=== PATIENT | female | born 1950 | race Caucasian/White ===

== ENCOUNTER → 2020-02-28 | Day surgery (SDC) | payer MEDICARE, SELFPAY ==
[2020-02-23 12:34] LABS: BASOPHILS % 0.6 % (0.0-1.0); EOSINOPHILS # (AUTO) 0.2 (0.0-0.4); EOSINOPHILS % 2.5 % (0.0-6.0); HEMATOCRIT 36.9 % (34.2-44.1); HEMOGLOBIN 11.6 g/dL (12.0-16.0); LYMPHOCYTES # (AUTO) 1.5 (1.0-3.2); LYMPHOCYTES % 21.2 % (18.0-39.1); MEAN CORPUSCULAR HEMOGLOBIN 29.6 pg (28-32); MEAN CORPUSCULAR HGB CONC 31.4 g/dL (31-35); MEAN CORPUSCULAR VOLUME 94.1 fL (81-99); MONOCYTES # (AUTO) 0.5 (0.2-0.8); MONOCYTES % 6.8 % (4.4-11.3); NEUTROPHILS # (AUTO) 4.8 (2.1-6.9); NEUTROPHILS % 68.6 % (38.7-80.0); PLATELET COUNT 240 x10e3/uL (140-360); RED BLOOD COUNT 3.92 x10e6/uL (3.6-5.1); RED CELL DISTRIBUTION WIDTH 12.9 % (11.7-14.4)
--- NOTE | 2020-02-23 13:32 | Diagnostic Imaging Report ---
EXAMINATION: CHEST 2 VIEWS INDICATION: Preop for shoulder surgery ^[id number] ^1250 ^PRE OP COMPARISON: None FINDINGS: TUBES and LINES: None. LUNGS: Lungs are well inflated. Likely small calcified granuloma in the left upper lung. There is no evidence of pneumonia or pulmonary edema. PLEURA: No pleural effusion or pneumothorax. HEART AND MEDIASTINUM: The cardiomediastinal silhouette is unremarkable. BONES AND SOFT TISSUES: No acute osseous lesion. Soft tissues are unremarkable. UPPER ABDOMEN: No free air under the diaphragm. IMPRESSION: No acute thoracic abnormality. Signed by: Dr. Jose D Sosa M.D. on 02/23/2020 1:29 PM
[~2020-02-28] VITALS: Ht 157.5 cm; Wt 47.2 kg
[~2020-02-28] MED LIST: APRISO0.375 GM PO; ATROPINE SULFATE 1 MG/ML VIAL ONE; BONIVA; CELEBREX50 MG PO; CLINDAMYCIN PHOS 900MG/ 50ML 50 ML IV ONE; DEXAMETHASONE SOD PHOS INJ 4 MG/ML VIAL ONE; DEXILANT60 MG PO; EPHEDRINE SULFATE INJ 50 MG/ML VIAL ONE; EPINEPHRINE 1 MG/ML 30ML VIAL ONE; FENTANYL CITRATE/PF 100MCG/2 ML INJ ONE; FLAGYL500 MG PO; GABAPENTIN300 MG PO; HYDROCODONE/APAP 5MG-325MG TAB ONE; HYDROMORPHONE 1MG/1ML INJ ONE; KETOROLAC TROMETHAMINE 30 MG/ML VIAL ONE; LIDOCAINE 2%/ EPINEPHRINE 20ML MDV ONE; LIDOCAINE HCL 2% LOCAL INJ 5 ML SDV VIAL INJ ONE; MIDAZOLAM HCL 2 MG/2 ML VIAL ONE; NEOSTIGMINE 1 MG/ML 10ML VIAL ONE; OMEPRAZOLE40 MG PO; ONDANSETRON HCL INJ 2MG/ML 2ML 2 MG/ML VIAL ONE; ONE-A-DAY ESSE1 EACH; PRESERVISION T1 EACH; PROPOFOL IV EMULSION 10 MG/ML 20 ML VIAL ONE; ROCURONIUM BROMIDE 10 MG/ML 5ML VIAL IV ONE; ROPIVACAINE 0.5% 5 MG/ML 30 ML SDV ONE; SEVOFLURANE INHAL SOLN 250 ML PEN BTL ONE; SKELAXIN800 M1 PO; TYLENOL EXTRA500 MG PO; VITAMIN D3 COM1 EACH; VOLTAREN; Z ESTRACE; Z.0.CITRACAL + D C1; Z.0.VYTORIN 10-401 E PO; [UNRECOGNIZED DRUG - OTHER] PO
[2020-02-28 12:27] VITALS: BP 141/58
--- NOTE | 2020-03-08 00:25 | Operative Report ---
DATE OF PROCEDURE: 02/28/2020 SURGEON: Jeffrey Shaikh MD PREOPERATIVE DIAGNOSES: 1. Right shoulder rotator cuff tear. 2. Right shoulder impingement. POSTOPERATIVE DIAGNOSES: 1. Right shoulder rotator cuff tear. 2. Right shoulder impingement. 3. Right shoulder synovitis. OPERATIONS AND PROCEDURES PERFORMED: The patient underwent a right shoulder examination under anesthesia, right shoulder arthroscopy, right shoulder arthroscopic debridement of synovitis, right shoulder arthroscopic rotator cuff reconstruction, and right shoulder arthroscopic subacromial decompression, and acromioplasty. ANESTHESIA: General endotracheal patient. IV FLUIDS: As per the anesthesia record. BLOOD LOSS: Minimal. BRIEF DESCRIPTION OF THE PATIENT'S OPERATIVE PROCEDURE: Ms. Monroy was taken to the operating room and placed in a supine position on the operating table. Following induction of general anesthesia as well as endotracheal intubation, the patient is right upper extremity was examined under anesthesia. She was found to have full passive range of motion of the shoulder joint. There was no evidence of instability. The patient's upper extremity was prepped and draped standard surgical fashion. Standard posterolateral and anterior port was created without difficulty. Scope was placed within the shoulder joint atraumatically. Examination of the glenohumeral articulation demonstrated no significant evidence of chondromalacia. There were no loose bodies in the shoulder joint. A probe was placed in the shoulder joint and the long head of the biceps tendon was found to be contained within the shoulder. It attached firmly at the superior rim of the glenoid. The labrum was also firmly attached to the glenoid. There was diffuse synovitis in the shoulder joint. The examination of the rotator cuff demonstrated a full-thickness rotator cuff tear. The shaver was placed in the shoulder joint and the synovitis was debrided. The rotator cuff injury was also debrided. The insertion site was debrided to a bleeding bony bed. The scope was then transferred to the subacromial space. A lateral portal was created with an outside-in technique. Significant bursal inflammation was encountered. A bursectomy was performed. An accessory anterolateral portal was created and the rotator cuff tear was again easily identified. The insertion site was further debrided to a bleeding bony bed. A single suture anchor was inserted into the greater tuberosity of the humerus. The suture arms were then woven through the rotator cuff tissue and the rotator cuff tissue was then advanced and tied firmly over its normal insertion site. This resulted in complete reapproximation of the rotator cuff injury. The coracoacromial ligament was then resected. An aggressive acromioplasty was performed. The shoulder was placed through range of motion and found to have no impingement. The shoulder was inflated with sterile normal saline. The portal sites were closed and sterile dressings were applied. The patient was provided a shoulder immobilizer, awakened, and taken to the postanesthesia care unit in stable condition. MD SHANELLE Marques/CHANDAL /[id number]
== END | disposition home or self-care (01) ==
LOC: OR 06:06
PROVIDERS: ATTEND Specialist
DX: S46.091A Other injury of muscle(s) and tendon(s) of the rotator cuff of right shoulder, initial encounter (principal); M19.011 Primary osteoarthritis, right shoulder; M65.811 Other synovitis and tenosynovitis, right shoulder; M75.41 Impingement syndrome of right shoulder; K29.70 Gastritis, unspecified, without bleeding; X58.XXXA Exposure to other specified factors, initial encounter; Z88.0 Allergy status to penicillin; Z01.810 Encounter for preprocedural cardiovascular examination; Z01.812 Encounter for preprocedural laboratory examination; Z01.818 Encounter for other preprocedural examination; Z20.828 Contact with and (suspected) exposure to other viral communicable diseases
CPT/HCPCS: 29826; 29827; 36415; 71046; 85025; 93005; A4467; C1713; J0461; J1100; J1170; J1885; J2001 ×2; J2250; J2405; J2704; J2710; J2795; J3010; U0002

== ENCOUNTER 2024-11-04 04:17 | Observation (INO) | payer MEDICARE ==
[~2024-11-04] VITALS: Ht 157.5 cm; Wt 45.4 kg
[2024-11-04] VITALS (8 sets, daily range): BP systolic 127–151; BP diastolic 61–71; PULSE 60–70; RESP 16–18; TEMP 97.1–99.1; O2SAT 99–100
[~2024-11-04 04:17] MED LIST changes: -ATROPINE SULFATE 1 MG/ML VIAL ONE; -CLINDAMYCIN PHOS 900MG/ 50ML 50 ML IV ONE; -DEXAMETHASONE SOD PHOS INJ 4 MG/ML VIAL ONE; -EPHEDRINE SULFATE INJ 50 MG/ML VIAL ONE; -EPINEPHRINE 1 MG/ML 30ML VIAL ONE; -FENTANYL CITRATE/PF 100MCG/2 ML INJ ONE; -HYDROCODONE/APAP 5MG-325MG TAB ONE; -HYDROMORPHONE 1MG/1ML INJ ONE; -KETOROLAC TROMETHAMINE 30 MG/ML VIAL ONE; -LIDOCAINE 2%/ EPINEPHRINE 20ML MDV ONE; -LIDOCAINE HCL 2% LOCAL INJ 5 ML SDV VIAL INJ ONE; -MIDAZOLAM HCL 2 MG/2 ML VIAL ONE; -NEOSTIGMINE 1 MG/ML 10ML VIAL ONE; -ONDANSETRON HCL INJ 2MG/ML 2ML 2 MG/ML VIAL ONE; -PROPOFOL IV EMULSION 10 MG/ML 20 ML VIAL ONE; -ROCURONIUM BROMIDE 10 MG/ML 5ML VIAL IV ONE; -ROPIVACAINE 0.5% 5 MG/ML 30 ML SDV ONE; -SEVOFLURANE INHAL SOLN 250 ML PEN BTL ONE
[2024-11-04 04:58] LABS: BASOPHILS % 0.7 % (0.0-1.0); EOSINOPHILS % 3.7 % (0.0-6.0); LYMPHOCYTES % 38.0 % (18.0-39.1); MONOCYTES % 8.7 % (4.4-11.3); NEUTROPHILS % 48.6 % (38.7-80.0); RED CELL DISTRIBUTION WIDTH 12.4 % (11.7-14.4)
[2024-11-04 05:04] LABS: INR 1.04
[2024-11-04 05:13] LABS: EST GLOMERULAR FILTRATION RATE 79.0 ML/MIN (>=60)
[2024-11-04] MEDS ORDERED: ONDANSETRON HCL INJ 2MG/ML 2ML 2 MG/ML VIAL IV PRN (06:15)
[2024-11-04] MEDS ORDERED: Morphine 2mg Syringe 2 MG/ML SYR IV PRN (06:15)
[2024-11-04] MEDS ORDERED: VYTORIN 10-401 EACH PO (17:05)
[2024-11-04] MEDS ORDERED: ARICEPT10 MG PO (17:05)
[2024-11-04] MEDS ORDERED: MEMANTINE HCL E14 MG PO (17:05)
[2024-11-04] MEDS ORDERED: CEPHALEXIN500 MG PO (17:05)
[2024-11-04] MEDS ORDERED: METOPROLOL SUCC25 MG PO (17:05)
[2024-11-04] MEDS ORDERED: SERTRALINE HCL50 MG PO (17:05)
[2024-11-04] MEDS ORDERED: ELIQUIS5 MG PO (17:05)
[2024-11-05] VITALS: BP 149/74; PULSE 66; RESP 18; TEMP 98.5; O2SAT 100
[2024-11-05 04:00] VITALS: BP 134/70; PULSE 63; RESP 18; TEMP 98.7; O2SAT 99
[2024-11-05] MEDS: PANTOPRAZOLE SODIUM 20 MG TABLET.DR PO SCH (08:22)
[2024-11-05 08:26] VITALS: BP 125/60; PULSE 67; RESP 18; TEMP 98; O2SAT 100
[2024-11-05 08:28] LABS: CHOL/HDL RATIO 2.0 (3.0-3.6); LDL CHOLESTEROL 66.0 MG/DL (60-130)
[2024-11-05 09:00] VITALS: BP 125/60; PULSE 67; RESP 18; TEMP 98; O2SAT 100
[2024-11-05] MEDS: SIMVASTATIN PO SCH (13:30)
[2024-11-05] MEDS: EZETIMIBE PO SCH (13:30)
[2024-11-05] MEDS ORDERED: ONDANSETRON ODT4 MG PO (15:00)
[2024-11-05] MEDS ORDERED: PANTOPRAZOLE SO20 MG PO (15:00)
[2024-11-05 15:48] VITALS: BP 118/53; PULSE 71; RESP 18; TEMP 98.2; O2SAT 100
[2024-11-05] MEDS: MULTIVITAMINS/MINERALS TAB PO SCH (15:59)
[2024-11-05] MEDS: MEMANTINE 10 MG TAB PO ONE ×2 (16:00)
[2024-11-05] MEDS: APIXABAN 5 MG TABLET PO SCH (16:00)
[2024-11-06] MEDS ORDERED: SERTRALINE HCL 50 MG TAB PO SCH (09:00)
[2024-11-06] MEDS ORDERED: DONEPEZIL HCL 5 MG TAB PO SCH (09:00)
== END 2024-11-05 16:23 | disposition home or self-care (01) ==
LOC: ER 04:22 → ERHOLD 06:04 → MED/SURG 07:39
PROVIDERS: ADMIT Internal Medicine; ATTEND Internal Medicine
DX: R07.89 Other chest pain (principal); R03.0 Elevated blood-pressure reading, without diagnosis of hypertension; K21.9 Gastro-esophageal reflux disease without esophagitis; G89.4 Chronic pain syndrome; M19.90 Unspecified osteoarthritis, unspecified site; F03.90 Unspecified dementia, unspecified severity, without behavioral disturbance, psychotic disturbance, mood disturbance, and anxiety
CPT/HCPCS: 36415 ×2; 71045; 80053; 80061; 82550 ×2; 83880; 84484 ×2; 85025; 85610; 85730; 93005; 93306; 94799; 99284; G0378 ×2

== ENCOUNTER 2024-11-07 11:46 | Emergency (ER) | payer MEDICARE ==
[~2024-11-07] VITALS: Ht 157.5 cm; Wt 45.4 kg
[~2024-11-07 11:46] MED LIST changes: +ARICEPT10 MG PO; +CEPHALEXIN500 MG PO; +ELIQUIS5 MG PO; +MEMANTINE HCL E14 MG PO; +METOPROLOL SUCC25 MG PO; +ONDANSETRON ODT4 MG PO; +PANTOPRAZOLE SO20 MG PO; +SERTRALINE HCL50 MG PO; +VYTORIN 10-401 EACH PO
[2024-11-07] MEDS ORDERED: IOPAMIDOL 370 MG/ML 100 ML INFUS..BTL INJ ONE (13:41)
[2024-11-07] MEDS: KETOROLAC TROMETHAMINE 30 MG/ML VIAL IV STA (13:46)
[2024-11-07] MEDS: SODIUM CHLORIDE 0.9% 1000ML 1,000 ML IV STA (13:46)
[2024-11-07] MEDS: ONDANSETRON HCL INJ 2MG/ML 2ML 2 MG/ML VIAL IV STA (13:47)
[2024-11-07 14:17] LABS: BASOPHILS % 0.3 % (0.0-1.0); EOSINOPHILS % 0.5 % (0.0-6.0); LYMPHOCYTES % 15.5 % (18.0-39.1); MONOCYTES % 7.7 % (4.4-11.3); NEUTROPHILS % 75.7 % (38.7-80.0); RED CELL DISTRIBUTION WIDTH 12.8 % (11.7-14.4)
[2024-11-07 14:27] LABS: INR 0.98
[2024-11-07 14:38] LABS: EST GLOMERULAR FILTRATION RATE 77.0 ML/MIN (>=60)
[2024-11-07 14:48] LABS: LEUKOCYTE ESTERASE ,URINE NEGATIVE (NEGATIVE); PROTEIN,URINE DIPSTICK NEGATIVE (NEGATIVE); URINE UROBILINOGEN 0.2 mg/dL (0.2 - 1)
[2024-11-07 17:20] VITALS: PULSE 75; RESP 16; TEMP 98
[2024-11-07 18:12] VITALS: BP 147/72; PULSE 77; RESP 16; TEMP 98.7; O2SAT 98
== END 2024-11-07 18:22 | disposition home or self-care (01) ==
LOC: ER 12:21
DX: R07.89 Other chest pain (principal); M19.09 Primary osteoarthritis, other specified site
CPT/HCPCS: 36415; 71260; 74176; 80053; 81001; 83735; 84484; 85025; 85610; 85730; 99284; J1885; J2405; J7030; Q9967

== ENCOUNTER 2024-11-26 16:46 | Emergency (ER) | payer MEDICARE ==
[~2024-11-26] VITALS: Ht 157.5 cm; Wt 45.4 kg
[2024-11-26 17:22] VITALS: PULSE 60; RESP 17; TEMP 97.8
[2024-11-26 18:52] LABS: BASOPHILS % 0.1 % (0.0-1.0); EOSINOPHILS % 0.3 % (0.0-6.0); LYMPHOCYTES % 15.0 % (18.0-39.1); MONOCYTES % 7.7 % (4.4-11.3); NEUTROPHILS % 76.7 % (38.7-80.0); RED CELL DISTRIBUTION WIDTH 12.3 % (11.7-14.4)
[2024-11-26 19:15] LABS: EST GLOMERULAR FILTRATION RATE 76.0 ML/MIN (>=60)
[2024-11-26 19:49] VITALS: BP 151/62; PULSE 67; RESP 16; TEMP 97.8; O2SAT 100
== END 2024-11-26 19:50 | disposition home or self-care (01) ==
LOC: ER 18:18
DX: R10.10 Upper abdominal pain, unspecified (principal); G30.9 Alzheimer's disease, unspecified; F02.80 Dementia in other diseases classified elsewhere, unspecified severity, without behavioral disturbance, psychotic disturbance, mood disturbance, and anxiety; I10 Essential (primary) hypertension; I48.91 Unspecified atrial fibrillation; K21.9 Gastro-esophageal reflux disease without esophagitis; E78.5 Hyperlipidemia, unspecified; M19.09 Primary osteoarthritis, other specified site; R94.31 Abnormal electrocardiogram [ECG] [EKG]; Z87.19 Personal history of other diseases of the digestive system
CPT/HCPCS: 36415; 80053; 83690; 84484; 85025; 93005; 99283; J2470

== ENCOUNTER → 2024-12-04 | Day surgery (SDC) | payer MEDICARE ==
[2024-11-27 10:40] LABS: BASOPHILS % 0.2 % (0.0-1.0); EOSINOPHILS % 0.5 % (0.0-6.0); LYMPHOCYTES % 12.0 % (18.0-39.1); MONOCYTES % 7.2 % (4.4-11.3); NEUTROPHILS % 79.9 % (38.7-80.0); RED CELL DISTRIBUTION WIDTH 12.4 % (11.7-14.4)
[~2024-12-04] MED LIST changes: +PROPOFOL IV EMULSION 10 MG/ML 20 ML VIAL ONE
[2024-12-04] MEDS: LACTATED RINGER'S 1,000 ML ONE (08:31)
[2024-12-04] MEDS: ONDANSETRON HCL INJ 2MG/ML 2ML 2 MG/ML VIAL ONE (08:31)
[2024-12-04 10:55] VITALS: TEMP 97
[2024-12-04 11:15] VITALS: BP 130/88; PULSE 73; RESP 18; O2SAT 95
== END | disposition home or self-care (01) ==
LOC: OR 07:48
PROVIDERS: ATTEND Internal Medicine Gastroenterology
DX: K29.50 Unspecified chronic gastritis without bleeding (principal); K31.7 Polyp of stomach and duodenum; K31.1 Adult hypertrophic pyloric stenosis; K21.9 Gastro-esophageal reflux disease without esophagitis; K31.89 Other diseases of stomach and duodenum; K44.9 Diaphragmatic hernia without obstruction or gangrene; K22.89 Other specified disease of esophagus; Z71.3 Dietary counseling and surveillance; I10 Essential (primary) hypertension; Z71.89 Other specified counseling; E78.5 Hyperlipidemia, unspecified; M54.9 Dorsalgia, unspecified; F32.A Depression, unspecified; G30.9 Alzheimer's disease, unspecified; F02.80 Dementia in other diseases classified elsewhere, unspecified severity, without behavioral disturbance, psychotic disturbance, mood disturbance, and anxiety; Z88.0 Allergy status to penicillin; Z01.810 Encounter for preprocedural cardiovascular examination; Z01.812 Encounter for preprocedural laboratory examination; Z79.02 Long term (current) use of antithrombotics/antiplatelets; Z79.899 Other long term (current) drug therapy; Z86.2 Personal history of diseases of the blood and blood-forming organs and certain disorders involving the immune mechanism
CPT/HCPCS: 36415; 43239; 43245; 85025; 93005 ×2; J2405; J2470; J2704; J7121; 43450